=== PATIENT | male | born 1955 | race Caucasian/White ===

== ENCOUNTER → 2024-02-23 | Outpatient (CLI) | payer OTHER, SELFPAY ==
--- NOTE | 2024-02-23 | LES_PTH ---
PATIENT: LUIS TORRES LOC: [facility] U#:[id number] AGE/SX: 68/M ROOM: RE02/23/[address]: Dr. Mirza Taveras MD : [id number] BED: DIS: 02/23/2024 SPEC #: [id number] RECD: 02/23/24 15:00 STATUS: ANAMARIA MISSAEL #: [id number] AYSHA: 02/23/24 00:[address]: Mirza Taveras DEPT: SURGICAL PATHOLOGY RECD BY: Rui Caballero ENTERED: 02/24/24 07:32 SP TYPE: Lesion OTHR DR: SACHIN Tissues: Skin of head, NOS Procedures: Special Stain Group I Surgery Specimen Level IV Iron Stain (control) HEADER OPERATION: Left removal of palatine cyst PRE-OP DIAGNOSIS: Localized swelling, mass and lump, head TISSUE SUBMITTED: Hard palate lesion MICROSCOPIC DIAGNOSIS Hard palate lesion, biopsy: A piece of squamous mucosa with chronic inflammation and granulation tissue reaction at the deep margin of the specimen. Negative for malignancy. See comment. [facility] 02/25/2024 COMMENT Iron stain with matched control was used in the evaluation and shows hemosiderin laden macrophages, consistent with old hemorrhage. No obvious cyst is identified. The findings may represent ruptured mucus cyst. Case has been reviewed in consultation with Dr. Wilcox who concurs with the above diagnosis. IDC:AM MICROSCOPIC DESCRIPTION Slides are reviewed. GROSS DESCRIPTION Received in fixative is one container labeled with the patient's name and designated Hard palate lesion. The specimen consists of a piece of castro mucosal tissue measuring 1.0 x 0.7cm and up to 0.3cm in thickness. The specimen is inked, serially sectioned and submitted entirely in one cassette. [facility] 02/24/2024 TC:5 CPT:68937,78262
== END | disposition home or self-care (01) ==
LOC: LABSPEC 15:30
PROVIDERS: Referring Provider Otolaryngology; Visit Provider Otolaryngology
DX: R22.0 Localized swelling, mass and lump, head (principal)
CPT/HCPCS: 88305; 88312